=== PATIENT | female | born 1930 | race Hispanic/Latino ===

== ENCOUNTER 2016-08-16 13:06 | Emergency (ER) | payer MEDICARE ==
[2016-08-16 13:19] VITALS: BMI 36.3
--- NOTE | 2016-08-16 14:21 | ED PDOC ---
Arrival/HPI - General Chief Complaint: Eye Problem Time Seen by Provider: 08/16/16 13:34 Historian: Patient - History of Present Illness Narrative History of Present Illness (Text): 08/16/16 13:34 Neva Richey is an 85 year old female, whose past medical history includes hypertension, who presents to the emergency department complaining of dizziness with a sensation of "feeling underwater" for 3 days and a cough for 1 week. Patient also notes to have a lot of redness in left eye prior to coming to emergency department, which developed today but denies any visual changes. Patient experiences associated dizziness, mild unsteadiness, and mild decrease in hearing which she has had in the past. Patient denies any chest pain, shortness of breath, focal weakness, abdominal pain, nausea, vomiting, or any other complaint at this time. Patient endorses that she has been taking Meclizine outpatient for the past 3 months due to onset of dizziness noted. PMD: Dr. Patria Wright Time/Duration: 1 week, < week Symptom Onset: Gradual Symptom Course: Unchanged Severity Level: Mild Activities at Onset: Light Context: Home Past Medical History - Provider Review Nursing Documentation Reviewed: Yes - Infectious Disease Hx of Infectious Diseases: None - Reproductive Menopause: Yes - Cardiac Hx Cardiac Disorders: Yes Hx Hypertension: Yes - Pulmonary Hx Respiratory Disorders: No - Neurological Hx Neurological Disorder: Yes Hx Dizziness: Yes - HEENT Hx HEENT Disorder: No - Renal Hx Renal Disorder: No - Endocrine/Metabolic Hx Endocrine Disorders: No - Hematological/Oncological Hx Blood Disorders: No - Integumentary Hx Dermatological Disorder: No - Musculoskeletal/Rheumatological Hx Musculoskeletal Disorders: Yes Hx Arthritis: Yes (walks with cane) - Gastrointestinal Hx Gastrointestinal Disorders: No - Genitourinary/Gynecological Hx Genitourinary Disorders: No - Psychiatric Hx Psychophysiologic Disorder: Yes Hx Depression: Yes Hx Substance Use: No - Anesthesia Hx Anesthesia: No Family/Social History - Physician Review Nursing Documentation Reviewed: Yes Family/Social History: No Known Family HX Smoking Status: Never Smoked Hx Alcohol Use: No Hx Substance Use: No Allergies/Home Meds Allergies/Adverse Reactions: Allergies No Known Allergies Allergy (Verified 08/16/16 13:19) Home Medications: Home Meds Medication Instructions Recorded Confirmed Docusate [Colace] 100 mg PO DAILY 08/16/16 08/16/16 Losartan [Cozaar] 50 mg PO DAILY 08/16/16 08/16/16 Meclizine [Meclizine*] 25 mg PO DAILY 08/16/16 08/16/16 Meloxicam [Meloxicam] 7.5 mg PO BID 08/16/16 08/16/16 traMADol [Ultram] 25 mg PO DAILY 08/16/16 08/16/16 Review of Systems - Review of Systems Constitutional: absent: Fevers, Night Sweats Eyes: absent: Vision Changes ENT: Hearing Changes, Sinus Congestion Respiratory: absent: SOB Cardiovascular: absent: Chest Pain Gastrointestinal: absent: Abdominal Pain, Nausea, Vomiting Genitourinary Female: Other (treatment for recent UTI) Neurological: Dizziness. absent: Headache, Focal Weakness, Speech Changes, Facial Droop Physical Exam Vital Signs Temp Pulse Resp BP Pulse Ox 08/16/16 15:50 79 18 130/79 97 08/16/16 14:22 98.2 F 87 18 132/85 97 Temperature: Afebrile Blood Pressure: Normal Pulse: Regular Respiratory Rate: Normal Appearance: Positive for: Well-Appearing, Non-Toxic, Comfortable Pain Distress: None Mental Status: Positive for: Alert and Oriented X 3 - Systems Exam Head: Present: Atraumatic, Normocephalic Pupils: Present: PERRL Extroacular Muscles: Present: EOMI Conjunctiva: Present: Other (subconjuctival hemorrhage covering about 50% on the left side) Ears: Present: Normal, NORMAL TM, Normal Canal. No: Erythema Mouth: Present: Moist Mucous Membranes Pharnyx: Present: Normal. No: ERYTHEMA, EXUDATE Neck: Present: Normal Range of Motion Respiratory/Chest: Present: Clear to Auscultation, Good Air Exchange. No: Respiratory Distress, Accessory Muscle Use Cardiovascular: Present: Regular Rate and Rhythm, Murmurs, Normal S1, S2 Abdomen: Present: Normal Bowel Sounds. No: Tenderness, Distention, Peritoneal Signs Back: Present: Normal Inspection Upper Extremity: Present: Normal Inspection. No: Cyanosis, Edema Lower Extremity: Present: Normal Inspection. No: Edema Neurological: Present: GCS=15, CN II-XII Intact, Speech Normal, Motor Func Grossly Intact, Normal Sensory Function, Normal Cerebellar Funct, Norm Deep Tendon Reflexes, Memory Normal, Normal 2Pt Descrimination Skin: Present: Warm, Dry, Normal Color. No: Rashes Psychiatric: Present: Alert, Oriented x 3 Medical Decision Making ED Course and Treatment: 08/16/16 14:24 Impression: 85 year old female complaining of dizziness for 3 days, a cough for 1 week, and redness to the left eye today. Differential Diagnosis include but are not limited to: vertigo vs. less likely central etiology vs. less likely cardiac etiology vs. electrolyte abnormality Plan: -- EKG -- Head CT w/o contast -- Chest X-ray -- Urinalyiss -- Labs -- Reassess and disposition Prior Visits: Notes and results from previous visits were reviewed. Patient last seen in ED on 12/21/15 for right index finger laceration that day. Patient was discharged home. Progress Notes: 08/16/16 14:[address] w/o Contrast: Creator : Abdullahi Paulson MD FINDINGS: HEMORRHAGE:No intracranial hemorrhage. BRAIN:No mass effect or edema. Moderate diffuse age-appropriate atrophy. Moderate periventricular and deep white matter lucency consistent with microvascular white matter ischemic change. No evidence of acute infarct. VENTRICLES:Unremarkable. No hydrocephalus. CALVARIUM:Unremarkable. PARANASAL SINUSES:Unremarkable as visualized. No significant inflammatory changes. MASTOID AIR CELLS:Unremarkable as visualized. No inflammatory changes. OTHER FINDINGS:None. IMPRESSION: No intracranial mass, hemorrhage or evidence of acute infarct. Age related atrophy and chronic white matter ischemic change. 08/16/16 15:30 Chest X-ray: Creator : Kane Schafer MD FINDINGS: LUNGS:No active pulmonary disease. PLEURA:No significant pleural effusion identified. No pneumothorax apparent. CARDIOVASCULAR:Normal. OSSEOUS STRUCTURES:No significant abnormalities. VISUALIZED UPPER ABDOMEN:Normal. OTHER FINDINGS:None. IMPRESSION: No active disease. 08/16/16 16:48 Patient with noted history of dizziness for several months, on meclizine outpatient with, noted slightly worse of late. Neuro exam is normal as is brain CT with no acute findings. CXR is unremarkable as is ekg. Blood work is unremarkable; urine shows UTI, but already treated with macrobid. Will d/c on amoxicillin for UTI and sinusitis/bronchitis as well as antihistamine. Subconj hemorrhage will be treated supportively - ok for d/c. - Lab Interpretations Lab Results: 08/16/16 15:00 08/16/16 15:00 Lab Results 08/16/16 15:00: Sodium 139, Potassium 3.8, Chloride 103, Carbon Dioxide 30, Anion Gap 10, BUN 16, Creatinine 0.6, Est GFR ( Amer) > 60, Est GFR (Non- Af Amer) > 60, Random Glucose 108, Calcium 9.6, Magnesium 2.3 H, Total Bilirubin 0.4, AST 25, ALT 31, Alkaline Phosphatase 145 H, Lactate Dehydrogenase 449, Total Creatine Kinase 111, Troponin I < 0.01, Total Protein 7.1, Albumin 3.8, Globulin 3.3, Albumin/Globulin Ratio 1.2, Lipase 98 08/16/16 15:00: PT 12.7 H, INR 1.18 H, APTT 28.9 08/16/16 15:00: WBC 8.6, RBC 3.72, Hgb 11.3 L, Hct 33.4 L, MCV 89.8, MCH 30.4, MCHC 33.8, RDW 14.4, Plt Count 317, MPV 9.2, Gran % 58.5, Lymph % (Auto) 20.1 L , [place] % (Auto) 10.9 H, Eos % (Auto) 9.9 H, Baso % (Auto) 0.6, Gran # 5.02, Lymph # 1.7, [place] # 0.9 H, Eos # 0.9 H, Baso # 0.05 08/16/16 14:07: Urine Color Yellow, Urine Appearance Clear, Urine pH 6.0, Ur Specific [place] 1.015, Urine Protein Negative, Urine Glucose (UA) Negative, Urine Ketones Negative, Urine Blood Moderate H, Urine Nitrate Negative, Urine Bilirubin Negative, Urine Urobilinogen 0.2, Ur Leukocyte Esterase Trace H, Urine RBC Pending, Urine WBC Pending - RAD Interpretation Radiology Orders: 08/16/16 14:07 CHEST TWO VIEWS (PA/LAT) [RAD] Stat 08/16/16 14:08 Brain [HEAD W/O CONTRAST] [CT] Stat - EKG Interpretation EKG Interpretation (Text): 08/16/16 16:50 NSR @ 81; nad; normal intervals; poor baseline and patient will not sit still; likely no ST/T changes; no old ekg for comparison. Interpreted by ED Physician: Yes Type: 12 lead EKG Comparison: No previous EKG avail. - Scribe Statement The provider has reviewed the documentation as recorded by the Ashreibe Cierra Boswell Provider Scribe Attestation: All medical record entries made by the Scribe were at my direction and personally dictated by me. I have reviewed the chart and agree that the record accurately reflects my personal performance of the history, physical exam, medical decision making, and the department course for this patient. I have also personally directed, reviewed, and agree with the discharge instructions and disposition. Disposition/Present on Arrival - Present on Arrival Any Indicators Present on Arrival: No History of DVT/PE: No History of Uncontrolled Diabetes: No Urinary Catheter: No History of Decub. Ulcer: No History Surgical Site Infection Following: None - Disposition Have Diagnosis and Disposition been Completed?: Yes Diagnosis: Subconjunctival hemorrhage, Dizziness, Sinusitis Disposition: HOME/ ROUTINE Disposition Time: 16:55 Patient Plan: Discharge Condition: GOOD Discharge Instructions (ExitCare): Dizziness (ED), Subconjunctival Hemorrhage ( ED) Additional Instructions: Continue meclizine and take the medications as prescribed. Eat yogurt daily or use probiotic while on antibiotic. Return to the emergency department if any new concerning symptoms. Prescriptions: Amoxicillin [Amoxil 500 mg Cap] 1 cap PO TID #30 cap Loratadine [Claritin] 1 tab PO DAILY #20 tab Referrals: Patria Wright MD [Primary Care Provider] - Follow up with primary
[2016-08-16 14:22] VITALS: RESP 18; TEMP 98.2; O2SAT 97
--- NOTE | 2016-08-16 14:45 | CT ---
PROCEDURE: CT HEAD WITHOUT CONTRAST. HISTORY: dizzy COMPARISON: None available. TECHNIQUE: Axial computed tomography images were obtained through the head/brain without intravenous contrast. Radiation dose: Total exam DLP = 629.06 mGy-cm. This CT exam was performed using one or more of the following dose reduction techniques: Automated exposure control, adjustment of the mA and/or kV according to patient size, and/or use of iterative reconstruction technique. FINDINGS: HEMORRHAGE: No intracranial hemorrhage. BRAIN: No mass effect or edema. Moderate diffuse age-appropriate atrophy. Moderate periventricular and deep white matter lucency consistent with microvascular white matter ischemic change. No evidence of acute infarct. VENTRICLES: Unremarkable. No hydrocephalus. CALVARIUM: Unremarkable. PARANASAL SINUSES: Unremarkable as visualized. No significant inflammatory changes. MASTOID AIR CELLS: Unremarkable as visualized. No inflammatory changes. OTHER FINDINGS: None. IMPRESSION: No intracranial mass, hemorrhage or evidence of acute infarct. Age related atrophy and chronic white matter ischemic change.
[2016-08-16 15:16] LABS: ADD MANUAL DIFF? NO
--- NOTE | 2016-08-16 15:25 | RAD ---
HISTORY: dizzy and cough COMPARISON: No prior. TECHNIQUE: Chest PA and lateral FINDINGS: LUNGS: No active pulmonary disease. PLEURA: No significant pleural effusion identified. No pneumothorax apparent. CARDIOVASCULAR: Normal. OSSEOUS STRUCTURES: No significant abnormalities. VISUALIZED UPPER ABDOMEN: Normal. OTHER FINDINGS: None. IMPRESSION: No active disease.
[2016-08-16 15:29] LABS: ALB/GLOB RATIO 1.2 (1.1-1.8); ALKALINE PHOSPHATASE 145 U/L (38-133); ALT/SGPT 31 U/L (7-56); AST/SGOT 25 U/L (15-39); BILIRUBIN,TOTAL 0.4 mg/dL (0.2-1.3); BLOOD UREA NITROGEN 16 mg/dL (7-21); CALCIUM 9.6 mg/dL (8.4-10.5); CARBON DIOXIDE 30 mmol/L (21-33); CHLORIDE 103 mmol/L (98-107); GFR AFRICAN-AMERICAN > 60; GLUCOSE,RANDOM 108 mg/dL (70-110); INR 1.18 (0.93-1.08); MAGNESIUM 2.3 mg/dL (1.7-2.2); PARTIAL THROMBOPLASTIN TIME 28.9 Seconds (23.7-30.8); POTASSIUM 3.8 mmol/L (3.6-5.0); SODIUM 139 mmol/L (132-148); TOTAL PROTEIN 7.1 g/dL (5.8-8.3)
[2016-08-16 15:32] LABS: URINE BILIRUBIN NEGATIVE (NEGATIVE); URINE BLOOD MODERATE (NEGATIVE); URINE GLUCOSE (UA) NEGATIVE (NEGATIVE); URINE KETONE NEGATIVE (NEGATIVE); URINE LEUKOCYTE ESTERASE TRACE Leu/uL (NEGATIVE); URINE PROTEIN NEGATIVE mg/dL (<30 mg/dL); URINE UROBILINOGEN 0.2 E.U./dL (<1 E.U./dL)
[2016-08-16 15:37] LABS: URINE APPEARANCE CLEAR (CLEAR); URINE COLOR YELLOW (YELLOW)
[2016-08-16 15:50] LABS: TROPONIN I < 0.01 ng/mL
[2016-08-16 15:58] LABS: LIPASE 98 U/L (23-300)
[2016-08-16 16:27] LABS: HEMATOCRIT 33.4 % (36.0-48.0); MEAN CELL VOLUME 89.8 fL (80.0-105.0); MEAN CORPUSCULAR HEMOGLOBIN 30.4 pg (25.0-35.0); MEAN CORPUSCULAR HGB CONC 33.8 g/dl (31.0-37.0); WHITE BLOOD COUNT 8.6 10^3/ul (4.5-11.0)
[2016-08-16 16:29] LABS: BASO # 0.05 K/mm3 (0.0-2.0); BASO % 0.6 % (0.0-3.0); EOS # 0.9 (0.0-0.7); EOS % 9.9 % (1.5-5.0); GRAN # 5.02 (1.4-6.5); GRAN % 58.5 % (50.0-68.0); LYMPH # 1.7 (1.2-3.4); LYMPH % 20.1 % (22.0-35.0); MEAN PLATELET VOLUME 9.2 fl (7.0-11.0); MONO # 0.9 (0.1-0.6); MONO % 10.9 % (1.0-6.0); PLATELET COUNT 317 10^3/uL (120.0-450.0); RED CELL DISTRIBUTION WIDTH 14.4 % (11.5-14.5)
[2016-08-16 16:52] LABS: URINE RBC 15 - 20 /hpf (0-2)
[2016-08-16 16:53] LABS: URINE AMORPHOUS SEDIMENT FEW; URINE BACTERIA MANY (NEG)
[2016-08-16 17:14] VITALS: BP 131/80; PULSE 78
--- NOTE | 2016-08-16 21:34 | CARD ---
APPROVED REPORT EKG Measurement Heart [id number] <Conclusion> Normal sinus rhythm Nonspecific ST abnormality Abnormal ECG
== END 2016-08-16 17:00 | disposition home or self-care (01) ==
LOC: ED 13:06
DX: H11.32 Conjunctival hemorrhage, left eye (principal); R42 Dizziness and giddiness; J32.9 Chronic sinusitis, unspecified; I10 Essential (primary) hypertension

== ENCOUNTER 2018-08-08 14:43 | Inpatient (IN) | payer MEDICARE ==
[2018-08-08] MEDS ORDERED: [UNRECOGNIZED DRUG - OTHER] IV ONE (15:06)
[2018-08-08] MEDS ORDERED: Eptifibatide 20 mg/10mL Inj IV ONE (15:07)
[2018-08-08] MEDS ORDERED: Eptifibatide 20 mg/10mL Inj IVP ONE ×2 (15:10→15:58)
[2018-08-08] MEDS ORDERED: Eptifibatide 0.75 mg/ml 75 MG/100 ML BAG IV ONE (15:10)
[2018-08-08 15:13] LABS: BASO # 0.01 K/mm3 (0.0-2.0); BASO % 0.1 % (0.0-3.0); HEMOGLOBIN 13.4 g/dL (12.0-16.0); LYMPH # 2.1 (1.2-3.4); MEAN CELL VOLUME 89.1 fl (80.0-105.0); MEAN CORPUSCULAR HEMOGLOBIN 30.5 pg (25.0-35.0); MEAN CORPUSCULAR HGB CONC 34.2 g/dl (31.0-37.0); MEAN PLATELET VOLUME 9.5 fl (7.0-11.0); MONO # 2.8 (0.1-0.6); MONO % 14.6 % (1.0-6.0); RBC 4.4 10^6/uL (3.5-6.1); WHITE BLOOD COUNT 18.9 10^3/uL (4.5-11.0)
[2018-08-08] MEDS ORDERED: Lidocaine PF 2% (5 ml) Inj (For Cardiac Arrhy) ONE (15:13)
[2018-08-08] MEDS ORDERED: Verapamil 0 ML ONE (15:13)
[2018-08-08] MEDS ORDERED: Iodixanol 320 MG/ML 200 ML BOTTLE IV ONE (15:14)
[2018-08-08] MEDS ORDERED: Nitroglycerin 50mg in D5W 0 MG/0 ML BOTTLE IV ONE (15:14)
[2018-08-08] MEDS ORDERED: Iohexol 350mgl/ml 50 ML ONE (15:14)
[2018-08-08] MEDS ORDERED: Iodixanol 320 MG/ML 100 ML BOTTLE IV ONE (15:14)
[2018-08-08] MEDS ORDERED: Midazolam 2 MG/2 ML VIAL ONE (15:20)
[2018-08-08 15:23] LABS: ALB/GLOB RATIO 1.2 (1.1-1.8); ALBUMIN 4.2 g/dL (3.0-4.8); ALT/SGPT 94 U/L (7-56); AST/SGOT 371 U/L (14-36); BLOOD UREA NITROGEN 24 mg/dL (7-21); CALCIUM 10.2 mg/dL (8.4-10.5); GFR NON-AFRICAN AMERICAN > 60; INR 1.39; PARTIAL THROMBOPLASTIN TIME 28.5 Seconds (26.9-38.3); PROTHROMBIN TIME 15.4 SECONDS (9.4-12.5)
--- NOTE | 2018-08-08 15:27 | ED PDOC ---
Arrival/HPI - General Chief Complaint: GI Problem Time Seen by Provider: 08/08/18 14:44 Historian: Patient - Critical Care Critical Care Minutes: 30 minutes - History of Present Illness Narrative History of Present Illness (Text): 08/08/18 14:44 Neva Richey is an 87 year old female, with a past medical history of hypertension (no hx of diabetes or MT), who presents to the emergency department complaining of generalized weakness, nausea, and vomiting since 2 days. Pt's last episode of vomiting was yesterday. Per daughter, patient was unable to get out of bed and appreciates worsened fatigue which prompted visit to ED. Pt denies chest pain but informs of intermittent left sided neck pain. Patient denies fevers, chills, headache, dizziness, TMJ pain, shortness of breath, cough, abdominal pain, diarrhea, dysuria, hematuria. or any other complaints. PMD: Dr. Wright Time/Duration: < week (2 days) Symptom Onset: Sudden Activities at Onset: Light Context: Home Past Medical History - Provider Review Nursing Documentation Reviewed: Yes - Infectious Disease Hx of Infectious Diseases: None - Reproductive Menopause: Yes - Cardiac Hx Cardiac Disorders: Yes Hx Hypertension: Yes - Pulmonary Hx Respiratory Disorders: No - Neurological Hx Neurological Disorder: Yes Hx Dizziness: Yes - HEENT Hx HEENT Disorder: No - Renal Hx Renal Disorder: No - Endocrine/Metabolic Hx Endocrine Disorders: No - Hematological/Oncological Hx Blood Disorders: No - Integumentary Hx Dermatological Disorder: No - Musculoskeletal/Rheumatological Hx Musculoskeletal Disorders: Yes Hx Arthritis: Yes (walks with cane) - Gastrointestinal Hx Gastrointestinal Disorders: No - Genitourinary/Gynecological Hx Genitourinary Disorders: No - Psychiatric Hx Psychophysiologic Disorder: Yes Hx Depression: Yes Hx Substance Use: No - Anesthesia Hx Anesthesia: No Family/Social History - Physician Review Nursing Documentation Reviewed: Yes Family/Social History: No Known Family HX Smoking Status: Never Smoked Hx Alcohol Use: No Hx Substance Use: No Allergies/Home Meds Allergies/Adverse Reactions: Allergies No Known Allergies Allergy (Verified 08/16/16 13:19) Home Medications: Home Meds Medication Instructions Recorded Confirmed Docusate [Colace] 100 mg PO DAILY 08/16/16 08/16/16 Losartan [Cozaar] 50 mg PO DAILY 08/16/16 08/16/16 Meclizine [Meclizine*] 25 mg PO DAILY 08/16/16 08/16/16 Meloxicam 7.5 mg PO BID 08/16/16 08/16/16 traMADol [Ultram] 25 mg PO DAILY 08/16/16 08/16/16 Review of Systems - Review of Systems Constitutional: Fatigue (generalized fatigue). absent: Fevers Eyes: absent: Vision Changes ENT: absent: Hearing Changes, TMJ Pain Respiratory: absent: SOB, Cough Cardiovascular: Chest Pain (L sided "neck/upper chest" pain) Gastrointestinal: Diarrhea, Nausea, Vomiting. absent: Abdominal Pain Genitourinary Female: absent: Dysuria, Hematuria Neurological: absent: Headache, Dizziness Physical Exam Vital Signs Reviewed: Yes Vital Signs Temp Pulse Resp BP Pulse Ox 08/08/18 15:10 104 H 20 124/70 98 08/08/18 15:01 98.2 F 112 H 18 113/74 98 08/08/18 14:58 108 H 18 122/71 100 Blood Pressure: Normal Pulse: Tachycardic Respiratory Rate: Normal Appearance: Positive for: Other (Anxious) Pain Distress: None Mental Status: Positive for: Alert and Oriented X 3 - Systems Exam Head: Present: Atraumatic, Normocephalic Pupils: Present: PERRL Extroacular Muscles: Present: EOMI Conjunctiva: Present: Normal Mouth: Present: Moist Mucous Membranes Neck: Present: Normal Range of Motion Respiratory/Chest: Present: Clear to Auscultation, Good Air Exchange. No: Respiratory Distress, Accessory Muscle Use, Wheezes, Rales, Rhonchi Cardiovascular: Present: Normal S1, S2, Tachycardic. No: Murmurs Abdomen: No: Tenderness, Distention, Peritoneal Signs, Rebound, Guarding Back: Present: Normal Inspection Upper Extremity: Present: Normal Inspection, NORMAL PULSES (distal pulses intact). No: Cyanosis, Edema Lower Extremity: Present: Normal Inspection. No: Edema (no pitting edema bilaterally) Neurological: Present: GCS=15, CN II-XII Intact, Speech Normal Skin: Present: Warm, Dry, Normal Color. No: Rashes Psychiatric: Present: Alert, Oriented x 3, Normal Insight, Normal Concentration Medical Decision Making ED Course and Treatment: 08/08/18 14:44 Impression: Patient is an 87 year old female, with a past medical history of hypertension, who presents to the emergency department complaining of generalized weakness, nausea, and vomiting since 2 days. Pt appreciates worsened fatigue today which prompted visit to ED. Plan: -- Labs -- EKG -- Chest X-Ray -- Aspirin -- Integrilin -- Plavix -- Urine Culture -- Urinalysis -- Reassess and disposition Prior Visits: Notes and results from previous visits were reviewed. Progress Notes: 08/08/18 14:56 Reviewed EKG, shows: ST elevations in leads II, III, aVF w/ reciprocal changes. Code heart immediately called. 08/08/18 14:58 Dr. Kirby is aware and agrees to accept patient for Dr. Wright. Consult per Dr. Hunt for code heart; requests aspirin and integrillin bolus & drip. ICU resident at bedside and accepts patient to ICU after laborer tree tapping - RAD Interpretation Radiology Orders: 08/08/18 15:01 CHEST PORTABLE [RAD] Stat - EKG Interpretation Interpreted by ED Physician: Yes Type: 12 lead EKG - Medication Orders Current Medication Orders: Eptifibatide (Integrilin) 75 mg in 100 mls @ 8.818 mls/hr IV .[id number] ROSY; Protocol Discontinued Medications Aspirin (Aspirin) 325 mg PO STAT STA Stop: 08/08/18 15:02 Eptifibatide (Integrilin Bolus) 11.4 mg 0.18 mg/kg (11.4 mg) IV ONCE ONE Stop: 08/08/18 15:08 - Scribe Statement The provider has reviewed the documentation as recorded by the Scribmicki Garcia All medical record entries made by the Asheribmicki were at my direction and personally dictated by me. I have reviewed the chart and agree that the record accurately reflects my personal performance of the history, physical exam, medical decision making, and the department course for this patient. I have also personally directed, reviewed, and agree with the discharge instructions and disposition. Disposition/Present on Arrival - Present on Arrival Any Indicators Present on Arrival: No History of DVT/PE: No History of Uncontrolled Diabetes: No Urinary Catheter: No History of Decub. Ulcer: No History Surgical Site Infection Following: None - Disposition Have Diagnosis and Disposition been Completed?: Yes Diagnosis: STEMI (ST elevation myocardial infarction) Disposition: HOSPITALIZED Disposition Time: 15:01 Patient Plan: ICU Patient Problems: Current Active Problems Problem Status Onset STEMI (ST elevation myocardial infarction) Acute Condition: CRITICAL
--- NOTE | 2018-08-08 15:32 | RAD ---
Date of service: 08/08/2018 HISTORY: chest pain COMPARISON: 08/16/2016 TECHNIQUE: 1 view obtained. FINDINGS: LUNGS: No active pulmonary disease. PLEURA: No significant pleural effusion identified, no pneumothorax apparent. CARDIOVASCULAR: Aortic calcification Normal cardiac size. No pulmonary vascular congestion. OSSEOUS STRUCTURES: No significant abnormalities. VISUALIZED UPPER ABDOMEN: Normal. OTHER FINDINGS: None. IMPRESSION: No active disease.
[2018-08-08] MEDS: Eptifibatide 0.75 mg/ml 75 MG/100 ML BAG IV SCH ×2 (15:33→23:42)
--- NOTE | 2018-08-08 15:39 | CP.PCM.PCO ---
Summary - Summary of Event Summary of Event: House Resident [facility] Note Harshil An DO, IM PGY-3 [facility] called in ED at 1458, responded immediately. As per ED attending, this is an 87yo F with PMH of HTN, no known hx of cardiac disease, brought in by family member after worsening malaise and weakness x3 days. As per nimarianela Tipton (who is POA and takes care of pt), pt experienced emesis and diarrhea with malaise 2 days prior, worsening malaise and more emesis yesterday, and felt weak to the point of being unable to do anything today, so nimarianela brought pt to ED. Pt not complaining of chest pain, but reports upper chest/neck discomfort. EKG obtained in ED was acutely concerning for possible STEMI, given ST elevations in II, III, and aVF, with milder ST elevations in V5-6 (possibly V4), and reciprocal depressions in I, aVL, and V2-3. Cardiology early intervention school psychologist for [facility] reviewed EKG, confirmed STEMI, [facility] called. Prior to transport to receiver/laborer, patient given ASA 325mg, Interillin bolus, and was started on Integrillin drip. Transported to receiver/laborer without issue, Jigsaw Operator (Dr. Jade) already on site and accepted patient into lab immediately. After arrival, at Cardiology's request, 600mg Plavix also given. Patient to go to ICU post-procedure for continuation of integrillin drip and close monitoring post-cath.
[2018-08-08] MEDS ORDERED: DOPamine 400mg/250ml D5W 400 MG/250 ML BAG IV ONE (15:40)
[2018-08-08 15:49] LABS: CK MB% 2.9 % (2.5-3.0); CK-MB 39.3 ng/mL (0.0-3.6)
[2018-08-08] MEDS ORDERED: Phenylephrine 10 mg/ml Inj ONE (15:50)
[2018-08-08] MEDS ORDERED: Morphine 2 mg/ml ISec ONE (15:52)
[2018-08-08] MEDS ORDERED: Iodixanol 320 mg/ml 150 ml Bottle IV ONE (16:01)
--- NOTE | 2018-08-08 16:48 | CP.PCM.CON ---
<Michel Jewell Andi - Last Filed: 08/08/18 17:08> History of Present Illness - History of Present Illness History of Present Illness: PGY-2 ICU consult note for Dr Last This is an 87yo F with PMH of HTN, depression, arthritis, no known hx of cardiac disease, brought in by family member after worsening malaise and weakness x3 days. As per niece Danuta (who is POA and takes care of pt), pt experienced emesis and diarrhea with malaise 2 days prior, worsening malaise and more emesis yesterday, and felt weak to the point of being unable to do anything today, so niece brought pt to ED. Pt not complaining of chest pain, but reports upper chest/neck discomfort. EKG showed ST elevations in II, III, and aVF with reciprocal depressions in I, aVL and V2-V3. Initial troponin was 47. She was giv en aspirin 325mg po qd, integrillin 5mg ivp and started on integrillin drip. Dr Jade performed emergent cardiac cath and placed 2 KRISTINA in RCA (distal and proximal). Patient needed a push of epi as pressure had dropped during cath. She will be accepted to the ICU for further monitoring and continuation of integrillin, dopamine and dobutamine drips. PMHx: HTN, depression, arthritis requiring a cane for ambulation PSHx: none Allergies: NKA Home Meds: BP medicine and medicine for dizziness - niece could not recall name FamHx: both parents young (~45 yo) of heart attacks, sister with DM2 SocialHx: never smoked, no alcohol, lives alone, walks with cane PMD: Dr Wright Review of Systems - Review of Systems All systems: reviewed and no additional remarkable complaints except (as stated in HPI) Past Patient History - Infectious Disease Hx of Infectious Diseases: None - Past Social History Smoking Status: Never Smoked - CARDIAC Hx Cardiac Disorders: Yes Hx Hypertension: Yes - PULMONARY Hx Respiratory Disorders: No - NEUROLOGICAL Hx Neurological Disorder: Yes Hx Dizziness: Yes - HEENT Hx HEENT Problems: No - RENAL Hx Chronic Kidney Disease: No - ENDOCRINE/METABOLIC Hx Endocrine Disorders: No - HEMATOLOGICAL/ONCOLOGICAL Hx Blood Disorders: No - INTEGUMENTARY Hx Dermatological Problems: No - MUSCULOSKELETAL/RHEUMATOLOGICAL Hx Musculoskeletal Disorders: Yes Hx Arthritis: Yes (walks with cane) - GASTROINTESTINAL Hx Gastrointestinal Disorders: No - GENITOURINARY/GYNECOLOGICAL Hx Genitourinary Disorders: No - PSYCHIATRIC Hx Psychophysiologic Disorder: Yes Hx Depression: Yes Hx Substance Use: No - SURGICAL HISTORY Hx Surgeries: No - ANESTHESIA Hx Anesthesia: No Meds Allergies/Adverse Reactions: Allergies Allergy/AdvReac Type Severity Reaction Status Date / Time No Known Allergies Allergy Verified 08/16/16 13:19 - Medications Medications: Current Medications Eptifibatide (Integrilin) 75 mg in 100 mls @ 8.818 mls/hr IV .[id number] [facility]; Protocol Last Admin: 08/08/18 15:33 Dose: 8.818 mls/hr Physical Exam - Constitutional Appears: Well, Non-toxic, No Acute Distress - Head Exam Head Exam: ATRAUMATIC, NORMAL INSPECTION - Eye Exam Eye Exam: EOMI, Normal appearance, PERRL. absent: Scleral icterus - ENT Exam ENT Exam: Mucous Membranes Moist - Neck Exam Neck exam: Positive for: Normal Inspection - Respiratory Exam Respiratory Exam: Clear to Auscultation Bilateral, Rales, NORMAL BREATHING PATTERN. absent: Rhonchi, Wheezes - Cardiovascular Exam Cardiovascular Exam: REGULAR RHYTHM, +S1, +S2. absent: JVD - GI/Abdominal Exam GI & Abdominal Exam: Normal Bowel Sounds, Soft. absent: Distended, Firm, Gua rding, Tenderness - Extremities Exam Extremities exam: Positive for: normal inspection Additional comments: left cath insertion site c/d/i - Neurological Exam Neurological exam: Alert, Oriented x3 - Skin Skin Exam: Dry, Intact, Normal Color, Warm Results - Vital Signs Recent Vital Signs: Last Vital Signs Temp 98.2 F 08/08/18 15:01 Pulse 104 H 08/08/18 15:10 Resp 20 08/08/18 15:10 BP 124/70 08/08/18 15:10 Pulse Ox 98 08/08/18 15:10 - Labs Result Diagrams: 08/08/18 15:00 08/08/18 15:00 Labs: Laboratory Results - last 24 hr 08/08/18 08/08/18 08/08/18 15:00 15:00 15:00 WBC 18.9 H RBC 4.40 Hgb 13.4 Hct 39.2 MCV 89.1 MCH 30.5 MCHC 34.2 RDW 14.0 Plt Count 212 MPV 9.5 Neut % (Auto) 74.3 H Lymph % (Auto) 11.0 L Villalba % (Auto) 14.6 H Eos % (Auto) 0.0 L Baso % (Auto) 0.1 Lymph # (Auto) 2.1 Villalba # (Auto) 2.8 H Eos # (Auto) 0.0 Baso # (Auto) 0.01 Absolute Neuts (auto) 14.01 H PT 15.4 H INR 1.39 APTT 28.5 Sodium 131 L Potassium 4.1 Chloride 94 L Carbon Dioxide 28 Anion Gap 13 BUN 24 H Creatinine 0.7 Est GFR ( Amer) > 60 Est GFR (Non-Af Amer) > 60 Random Glucose 122 H Calcium 10.2 Total Bilirubin 0.9 AST 371 H ALT 94 H Alkaline Phosphatase 101 Lactate Dehydrogenase 3867 H Total Creatine Kinase 1368 H CK-MB (CK-2) 39.3 H CK-MB (CK-2) % 2.9 Troponin I 47.60 H* D Total Protein 7.8 Albumin 4.2 Globulin 3.5 Albumin/Globulin Ratio 1.2 Assessment & Plan - Assessment and Plan (Free Text) Plan: Mrs Richey is a 87yo F with PMH of HTN, depression, arthritis, no known hx of cardiac disease, brought in by family member after worsening malaise and weakness x3 days found to have an STEMI on presentation and underwent emergent cardiac cath with placement of 2 KRISTINA in RCA: Cardiovascular #STEMI -initial ekg showed ST elevations in II, III, aVL with reciprocal changes in lateral leads with initial troponin 47 -in ED given aspirin 325mg po qd, integrillin bolus, integrillin drip and later plavix 600mg prior to cardiac cath -continue integrillin drip, dopamine, and dobutamine for inotropic support -coreg 3.125 po bid, lipitor 80mg po din, ramipril 1.25mg po qd -gentle hydration NS 50 cc/hr -f/u echo, repeat ekg -f/u lipid panel, hga1c, tsh, serial troponins -will possibly need another cath in a few days Pulmonary -saturating well on 2L NC -monitor saturation, she is at risk for flash pulmonary edema, will monitor closely Neuro -no active issues -ambien 5mg po hs prn for insomnia GI #Tranaminitis -monitor LFTs -zofram 4mg ivp prn for n/v -colace 100mg po bid ID #Leukocytosis -likely 2/2 stress response from IA -f/u urine cx PPx: GI ppx not indicated, AC with integrillin drip, heart healthy diet Seen and discussed with Dr Last <Lucho Last - Last Filed: 08/08/18 18:10> Meds - Medications Medications: Current Medications Aspirin (Ecotrin) 81 mg PO DAILY [facility] Atorvastatin Calcium (Lipitor) 80 mg PO DIN [facility] Carvedilol (Coreg) 3.125 mg PO BID [facility] Clopidogrel Bisulfate (Plavix) 75 mg PO DAILY [facility] Docusate Sodium (Colace) 100 mg PO BID [facility] Eptifibatide (Integrilin) 75 mg in 100 mls @ 8.818 mls/hr IV .[id number] [facility]; Protocol Stop: 08/09/18 11:15 Last Admin: 08/08/18 15:33 Dose: 8.818 mls/hr Dobutamine HCl/Dextrose (Dobutamine/Dextrose 5% 500mg/250ml) 500 mg in 250 mls @ 3.307 mls/hr IV .Q24H PRN; Protocol PRN Reason: TITRATE PER PROTOCOL Dopamine HCl/Dextrose (Dopamine 400mg/250ml D5w) 400 mg in 250 mls @ 4.133 mls/hr IV .Q24H PRN; Protocol PRN Reason: TITRATE PER MD ORDER Sodium Chloride (Sodium Chloride 0.9%) 1,000 mls @ 50 mls/hr IV .Q20H [facility] Stop: 08/09/18 13:00 Ondansetron HCl (Zofran Inj) 4 mg IV Q6H PRN PRN Reason: Nausea/Vomiting Ramipril (Altace) 1.25 mg PO DAILY [facility] Zolpidem Tartrate (Ambien) 5 mg PO HS PRN PRN Reason: Insomnia Results - Vital Signs Recent Vital Signs: Last Vital Signs Temp 98.2 F 08/08/18 15:01 Pulse 104 H 08/08/18 15:10 Resp 20 08/08/18 15:10 BP 124/70 08/08/18 15:10 Pulse Ox 98 08/08/18 15:10 - Labs Result Diagrams: 08/08/18 15:00 08/08/18 15:00 Labs: Laboratory Results - last 24 hr 08/08/18 08/08/18 08/08/18 15:00 15:00 15:00 WBC 18.9 H RBC 4.40 Hgb 13.4 Hct 39.2 MCV 89.1 MCH 30.5 MCHC 34.2 RDW 14.0 Plt Count 212 MPV 9.5 Neut % (Auto) 74.3 H Lymph % (Auto) 11.0 L Villalba % (Auto) 14.6 H Eos % (Auto) 0.0 L Baso % (Auto) 0.1 Lymph # (Auto) 2.1 Villalba # (Auto) 2.8 H Eos # (Auto) 0.0 Baso # (Auto) 0.01 Absolute Neuts (auto) 14.01 H PT 15.4 H INR 1.39 APTT 28.5 Sodium 131 L Potassium 4.1 Chloride 94 L Carbon Dioxide 28 Anion Gap 13 BUN 24 H Creatinine 0.7 Est GFR ( Amer) > 60 Est GFR (Non-Af Amer) > 60 Random Glucose 122 H Calcium 10.2 Total Bilirubin 0.9 AST 371 H ALT 94 H Alkaline Phosphatase 101 Lactate Dehydrogenase 3867 H Total Creatine Kinase 1368 H CK-MB (CK-2) 39.3 H CK-MB (CK-2) % 2.9 Troponin I 47.60 H* D Total Protein 7.8 Albumin 4.2 Globulin 3.5 Albumin/Globulin Ratio 1.2 Assessment & Plan - Assessment and Plan (Free Text) Plan: I saw and examined the patient on rounds with the resident, agree with note with following additions/exceptions: Patient is 87yo female with PMH of HTN, depression, arthritis, no known hx of cardiac disease, brought in by family member after worsening malaise and weakness x3 days found to have an STEMI s/p cardiac cath with placement of 2 KRISTINA in RCA Currently afebrile, HD stable, comfortable in NAD, doing well Cont with ASA, Plavix, Statin Hold BB Inotropic support ECHO Lipid panel, TSH, HgbA1C GI ppx DVT ppx Monitor in MICU
[2018-08-08] MEDS ORDERED: DOBUTamine 500mg/250ml D5W 500 MG/250 ML BAG IV PRN (16:49)
[2018-08-08] MEDS ORDERED: DOPamine 400mg/250ml D5W 400 MG/250 ML BAG IV PRN (16:49)
[2018-08-08] MEDS ORDERED: Sodium Chloride 0.9% 1,000 ML IV SCH (17:00)
--- NOTE | 2018-08-08 17:31 | CPOSTOP ---
DATE: 08/08/2018 DICTATING PHYSICIAN: Dr. Leonardo Jade. FIELD MARKETING LEAD: Gabriela Pemberton. TYPE OF ANESTHESIA: Moderate conscious sedation. Total 0.5 mg of Versed and 25mcg of fentanyl, 2 mg morphine given periodically, started at 25 of fentanyl. PRE-PROCEDURE DIAGNOSIS: Acute code ST-elevation myocardial infarction. PROCEDURE PERFORMED: Left heart catheterization and stenting of proximal to mid right coronary artery and distal right coronary artery. FINDINGS: RCA totally occluded. LAD had 95% stenosis with decreased LV function. FINAL DIAGNOSES: Acute code ST-elevation myocardial infarction secondary to right coronary artery infarct related artery, 100% occluded. POST PROCEDURE CONDITION: The patient's condition is fairly stable. VASCULAR ACCESS SITE: Right femoral artery. CLOSURE DEVICE: Mynx. TOTAL RADIATION DOSE: 24685 mGy unit. CUMULATIVE DOSE: 3290 mGy unit. FLUORO TIME: 20.6. Total contrast used.220 cc Leonardo Jade MD MTDD
[2018-08-08] MEDS ORDERED: Amiodarone 150 mg/D5W 100 ml 150 MG/100 ML BAG IVPB ONE (17:48)
--- NOTE | 2018-08-08 18:28 | CARD ---
APPROVED REPORT Date of service: 08/08/2018 EKG Measurement Heart [id number] <Conclusion> Sinus tachycardia Low voltage QRS Inferior infarct, possibly acute Lateral injury pattern Possible posterior wall ME acute ACUTE ME Consider right ventricular involvement in acute inferior infarct CCR Serial tracings recommended Abnormal ECG
[2018-08-08 20:39] LABS: BASO # 0.01 K/mm3 (0.0-2.0); BASO % 0.1 % (0.0-3.0); HEMOGLOBIN 11.5 g/dL (12.0-16.0); LYMPH # 1.5 (1.2-3.4); LYMPH % 8.5 % (22.0-35.0); MEAN CORPUSCULAR HGB CONC 34.1 g/dl (31.0-37.0); MEAN PLATELET VOLUME 9.7 fl (7.0-11.0); MONO # 2.3 (0.1-0.6); MONO % 12.6 % (1.0-6.0); RBC 3.83 10^6/uL (3.5-6.1); RED CELL DISTRIBUTION WIDTH 14.1 % (11.5-14.5); WHITE BLOOD COUNT 18.1 10^3/uL (4.5-11.0)
[2018-08-08 20:51] LABS: BLOOD UREA NITROGEN 21 mg/dL (7-21); CALCIUM 8.9 mg/dL (8.4-10.5); GFR NON-AFRICAN AMERICAN > 60
[2018-08-08 21:15] LABS: CK MB% 3.4 % (2.5-3.0); CK-MB 38.8 ng/mL (0.0-3.6)
[2018-08-08] MEDS ORDERED: Pneumococcal 23-Valent Vaccine IM ONE (22:27)
[2018-08-08 22:28] VITALS: BMI 22.2
--- NOTE | 2018-08-09 02:51 | HP ---
DATE OF EXAM: 08/08/2018 HISTORY OF PRESENT ILLNESS: The patient is an 87-year-old female who was brought in by niece because of her complaining of not feeling well for the last two days. She had an episode of nausea and vomiting, having difficulty getting out of bed and walking, this is not her usual, so because of her increasing malaise and fatigue, niece called the ambulance and she was brought to the emergency room. During workup, she was found to have ST-elevation CA in II, III, and aVF, so code heart was called. The patient was taken to cath lab tech and had emergent angioplasty done. The patient denies any fever or chills. Denies history of nausea or vomiting. Just complained of some jaw pain and upper, middle, and lower back pain. PAST MEDICAL HISTORY: Significant for: 1. Hypertension. 2. History of generalized osteoarthritis. ALLERGIES: SHE IS NOT ALLERGIC TO ANY MEDICATION. MEDICATIONS AT HOME: She is on blood pressure medication, and she takes meclizine as needed. She is on Mobic 7.5 twice a day, tramadol 25 three times a day, meclizine 25 t.i.d. p.r.n., Cozaar 50 mg daily and one tablet daily. FAMILY HISTORY: Both parents of heart disease at early age and sister has diabetes. SOCIAL HISTORY: Denies smoking, drinking, or alcohol use. PHYSICAL EXAMINATION GENERAL: She is awake and alert, able to communicate. VITAL SIGNS: She is afebrile, pulse 90, respirations 26, and blood pressure 87/64. LUNGS: Bilateral fair airflow. No rhonchi or crackle. HEART: S1 and S2 audible. ABDOMEN: Soft, nontender. No rebound, no guarding. NEUROLOGICAL: The patient is awake and alert, able to communicate. LABORATORY DATA: WBC upon arrival 18.9, and followup is 18.1, hemoglobin 11.5, hematocrit 33.7, and platelet 182. PT of 15.4 and INR of 1.39. Chemistries; sodium 131, potassium 3.8, chloride 98, CO2 of 24, BUN of 21, creatinine and blood sugar of 129. LDH of 3150, CPK of 1150 and MB of 38.8. Initial troponin was 47 and followup is 62.30. EKG showed ST elevation in II, III, and aVF. ASSESSMENT: 1. Acute myocardial infarction status post anterior wall myocardial infarction. 2. Status post code heart and right coronary artery angioplasty. 3. Hypertension. 4. Hyperlipidemia. 5. History of depression. PLAN: The patient is being admitted in ICU. She is on ramipril 1.25 daily. She is on aspirin and carvedilol. She is on dobutamine since her blood pressure was running low. She is on aspirin 81 daily. She is on Integrilin. She is on atorvastatin. She is on Plavix. She is on IV fluid. Follow up her electrolytes and CBC in a.m. She will be monitored closely and hemodynamically in ICU. Corry Kirby MD
[2018-08-09] MEDS: Eptifibatide 0.75 mg/ml 75 MG/100 ML BAG IV SCH (05:30)
[2018-08-09 06:39] LABS: BASO # 0.01 K/mm3 (0.0-2.0); BASO % 0.1 % (0.0-3.0); EOS % 0.1 % (1.5-5.0); HEMOGLOBIN 11.2 g/dL (12.0-16.0); LYMPH # 1.6 (1.2-3.4); LYMPH % 10.9 % (22.0-35.0); MEAN CELL VOLUME 90.6 fl (80.0-105.0); MEAN CORPUSCULAR HGB CONC 33.1 g/dl (31.0-37.0); MEAN PLATELET VOLUME 10.2 fl (7.0-11.0); MONO # 1.9 (0.1-0.6); MONO % 13.5 % (1.0-6.0); RBC 3.73 10^6/uL (3.5-6.1); RED CELL DISTRIBUTION WIDTH 14.2 % (11.5-14.5); WHITE BLOOD COUNT 14.4 10^3/uL (4.5-11.0)
[2018-08-09 07:01] LABS: ALB/GLOB RATIO 1.2 (1.1-1.8); ALBUMIN 3.4 g/dL (3.0-4.8); ALT/SGPT 82 U/L (7-56); AST/SGOT 196 U/L (14-36); BLOOD UREA NITROGEN 22 mg/dL (7-21); CALCIUM 8.9 mg/dL (8.4-10.5); GFR NON-AFRICAN AMERICAN > 60; HDL CHOLESTEROL 53 mg/dL (29-60)
[2018-08-09 07:03] LABS: LDL CHOLESTEROL 103 mg/dL (0-129)
[2018-08-09 07:12] LABS: CK MB% 3.4 % (2.5-3.0); CK-MB 31.8 ng/mL (0.0-3.6)
[2018-08-09] MEDS ORDERED: Potassium Chloride 20 mEq ER Tab PO STA (08:00)
--- NOTE | 2018-08-09 08:45 | CON ---
DATE: 08/08/2018 CONSULT SERVICE: Cardiology. REASON FOR CONSULTATION: Acute Code ST-elevation myocardial infarction. BRIEF CLINICAL HISTORY: This is an 87-year-old female with a past medical history significant for hypertension, hypothyroidism, and benign positional vertigo, who came to emergency room after being brought by the niece because of having nausea and vomiting and lethargic, feeling really weak. She saw the patient at 9 a.m., but the patient was feeling good so went to the home and came back again when the niece visited at around 2 p.m., the patient was very sick and so brought here to the emergency room. When the patient came to emergency room, found to be in ST elevation and admitted. Denies any chest pain, but feeling very weak and lethargic. PAST MEDICAL HISTORY: Significant for hypertension, hypothyroidism, and vertigo as well as arthritis. PAST SURGICAL HISTORY: Nothing significant. CURRENT MEDICATIONS: The patient is taking amlodipine 10 mg daily, levothyroxine 25 mcg, meloxicam 7.5 mg daily, meclizine 25 mg daily, and amlodipine 10 mg daily. REVIEW OF SYSTEMS: As per HPI. PHYSICAL EXAMINATION GENERAL: Height of the patient 5 feet 2 inches, weight of the patient 121 pounds, and body mass index 22.2 kg/m2. VITAL SIGNS: Temperature afebrile, heart rate 104, and blood pressure 124/78. HEENT: PERRLA. Extraocular muscles intact. NECK: Supple. No carotid bruits. No thyromegaly. CHEST: Clear to auscultation. HEART: S1 and S2, regular. ABDOMEN: Soft. EXTREMITIES: Clubbing and cyanosis negative. LABORATORY DATA: Blood work up as follows; WBC 18.9, hemoglobin 13.9, hematocrit 39.2, and platelet count 212. Chemistry pending. Creatinine found to be 0.7, BUN 24. The rest of the labs are pending. EKG shows normal sinus, ST elevation in inferior wall with reciprocal ST depression in the anterior lead. IMPRESSION: An 87-year-old female with a past medical history of hypertension, hypothyroidism, admitted with acute ST elevation myocardial infarction of probably 24 hours or longer, but the risks, benefits and alternatives were discussed with the patient, the patient agreed, and we will proceed for cardiac catheterization with possible angioplasty. Duration of the ST elevation is not sure, possibly more than 6 to 12 hours. Further recommendations will depend upon the hospital course. We will follow with you. Thank your Dr. Monzon for providing us the opportunity in taking care of the patient, Faith Styles. Leonardo Jade MD
--- NOTE | 2018-08-09 09:55 | CARD ---
APPROVED REPORT Date of service: 08/08/2018 EKG Measurement Heart [id number] <Conclusion> Sinus tachycardia Inferior infarct, suggesting acute injury ACUTE FL Consider right ventricular involvement in acute inferior infarct Abnormal ECG
--- NOTE | 2018-08-09 10:18 | CARD ---
APPROVED REPORT Date of service: 08/08/2018 Procedure(s) performed: Left Heart Catheterization PTCA with Stenting of Proximal to Mid RCA with KRISTINA PTCA with Stenting of Distal RCA with KRISTINA PTCA with Balloon Angioplasty of RV marginal Br HISTORY The patient is a 87 year-old female with a history of : hypertension , Hx of HTN, vertigo, hypothyroidism admitted with STEMI. INDICATION The indication(s) include : STEMI . CASE TECHNIQUE The patient was brought emergently to the Cardiac Catheterization Laboratory in a fasting state and was prepped and draped in a sterile manner. The right femoral groin was infiltrated with 2% Lidocaine subcutaneous anesthesia. A 6 Fr x 11 cm Larissa sheath was inserted into the right femoral artery without difficulty. Coronary angiography was performed using coronary diagnostic catheters. The left coronary system was accessed and visualized with a Diagnostic , 6F JL4 CATH DXT 100 CM catheter. The right coronary system was accessed and visualized with a Diagnostic ,6 Fr JR 3.5 catheter. The left ventricle was accessed and visualized with a 6F PIGTAIL 145 CATH DXT 110 CM catheter. Left ventricular/Aortic Valve gradient assessed on pullback. Left ventriculogram was performed in SLADE projection. Closure device was deployed with a 6 Fr / 7 Fr MynxGrip without any complications. The patient tolerated the procedure well and there were no complications associated with the procedure. Vessel Analysis The patient's coronary anatomy is right dominant. The left main coronary artery is a medium size vessel with diffuse calcification noted throughout this vessel and without significant stenosis. There is a 20% stenosis in the distal segment. The left main bifurcates to the left anterior descending and circumflex. The left anterior descending artery is a medium size vessel with diffuse calcification noted throughout this vessel and with significant stenosis. There is a 95% stenosis in the mid segment. The first diagonal branch is a small size vessel with diffuse calcification noted throughout this vessel and without significant stenosis. The second diagonal branch is a medium size vessel with diffuse calcification noted throughout this vessel and without significant stenosis. The circumflex artery is a medium size vessel with diffuse calcification noted throughout this vessel and without significant stenosis. The first obtuse marginal branch is a small size vessel with diffuse calcification noted throughout this vessel and without significant stenosis. The right coronary artery is a large size vessel with diffuse calcification noted throughout this vessel and with significant stenosis. There is a 100% stenosis in the proximal segment. Distal RCA has 90% The right posterior descending artery is a medium size vessel with diffuse calcification noted throughout this vessel and without significant stenosis. The right posterolateral branch is a medium size vessel with diffuse calcification noted throughout this vessel and without significant stenosis. Left Ventricle The left ventricle is enlarged in size with moderately decreased contractility. Ischemic cardiomyopathy. The left ventricular ejection fraction is estimated to be 25%. The left ventricular end diastolic pressure is 25 mmHg. There was no gradient across the aortic valve upon pullback. PCI Technique Lesion Anticoagulation was achieved with Heparin and integrellin bolus and Infusion. Percutaneous coronary intervention was performed on the proximal right coronary artery. The lesion stenosis prior to intervention was 100% with ANITA 0 flow. A 6 Fr JR 3.5 Guide Catheter was used to engage the ostium. A Luge 182 Interventional Guidewire was used to cross the lesion. BALLOON DILATION A Balloon catheter 2.5 x 10 mm Sprinter RX was inserted and inflated up to 8.00atm for 10seconds. STENT DEPLOYMENT A drug-eluting stent STENT RESOLUTE WILY 2.75 X26 was inserted and inflated up to 12.00atm for 7seconds. POST STENT DEPLOYMENT BALLOON DILATION A Balloon catheter 3.0 x 12 mm Trek RX NC was inserted and inflated up to 12.00atm for 7seconds. Final angiography reveals 0 % stenosis with ANITA 3 flow. PCI Technique Lesion 2 Percutaneous Coronary Intervention was performed on the right posterior atrioventricular segment. The lesion stenosis prior to intervention was 90% with ANITA 2 flow. A 6 Fr JR 3.5 Guide Catheter was used to engage the ostium. STENT DEPLOYMENT A drug-eluting stent STENT RESOLUTE WILY 2.5 X 08 was inserted and inflated up to 12.00atm for 7seconds. Final angiography reveals 0 % stenosis with ANITA 3 flow. PCI Technique Lesion 3 Percutaneous Coronary Intervention was performed on the Distal right coronary artery. The lesion stenosis prior to intervention was 90% with ANITA 2 flow. A 6 Fr JR 3.5 Guide Catheter was used to engage the ostium. A Luge 182 Interventional Guidewire was used to cross the lesion. BALLOON DILATION A Balloon catheter 2.0 x 10 mm Sprinter OTW was inserted and inflated up to 14.00atm for 12seconds. Final angiography reveals 0 % stenosis with ANITA 3 flow. PCI Technique Lesion 4 Percutaneous Coronary Intervention was performed on the mistal right coronary artery. 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 LAD Mid 95% stenos and very tortous with hair pin turn after stenisis. Decresed LV Fx. Ef-25%, EDP-25 mmof Hg. Successful PTCA of RCA with deployment of Two KRISTINA, proximal to MID RCa and distal RCA, after pulling blood clot, Heavy clot burden noted in Mid RCA. Post procedure IABP was contemplated, but Abd aorogram revealed very tortous common iliac and distal aorta do IABP was not placed. Recommendations Cardiac Rehabilitation ReferralDaily ASA with Plavix for at least one year Aggressive Medical TherapyCardiac Risk Reduction Program Staged PTCA od LAD in 3-4 days. CC; Dr. Patria Strickland MD.
[2018-08-09] MEDS ORDERED: Amiodarone 150 mg/D5W 100 ml 150 MG/100 ML BAG IVPB ONE (10:31)
--- NOTE | 2018-08-09 12:02 | CP.PCM.PN ---
Subjective - Date & Time of Evaluation Date of Evaluation: 08/09/18 Time of Evaluation: 08:10 - Subjective Subjective: Pt seen and examined, no major complaints, doing well, s/p PCI yesterday Objective - Vital Signs/Intake and Output Vital Signs (last 24 hours): Temp Pulse Resp BP Pulse Ox 97.8 F 104 H 26 H 115/74 94 L 08/09/18 02:00 08/09/18 10:54 08/09/18 03:00 08/09/18 10:54 08/09/18 03:00 Intake and Output: 08/09/18 08/09/18 06:59 18:59 Intake Total 708 Output Total 300 Balance 408 - Medications Medications: Current Medications Acetaminophen (Tylenol 325mg Tab) 650 mg PO Q6H PRN PRN Reason: Fever >100.4 F Amiodarone HCl (Cordarone) 200 mg PO DAILY [facility] Aspirin (Ecotrin) 81 mg PO DAILY [facility] Last Admin: 08/09/18 09:36 Dose: 81 mg Atorvastatin Calcium (Lipitor) 80 mg PO DIN [facility] Last Admin: 08/08/18 18:00 Dose: Not Given Carvedilol (Coreg) 3.125 mg PO BID [facility] Last Admin: 08/09/18 09:36 Dose: 3.125 mg Clopidogrel Bisulfate (Plavix) 75 mg PO DAILY [facility] Last Admin: 08/09/18 09:36 Dose: 75 mg Docusate Sodium (Colace) 100 mg PO BID [facility] Last Admin: 08/09/18 09:40 Dose: 100 mg Ondansetron HCl (Zofran Inj) 4 mg IV Q6H PRN PRN Reason: Nausea/Vomiting Ramipril (Altace) 1.25 mg PO DAILY [facility] Last Admin: 08/09/18 10:07 Dose: 1.25 mg Zolpidem Tartrate (Ambien) 5 mg PO HS PRN PRN Reason: Insomnia - Labs Labs: 08/09/18 05:30 08/09/18 05:30 PT 15.4 SECONDS (9.4-12.5) H 08/08/18 15:00 INR 1.39 08/08/18 15:00 APTT 28.5 Seconds (26.9-38.3) 08/08/18 15:00 - Constitutional Appears: Non-toxic, No Acute Distress - Head Exam Head Exam: NORMAL INSPECTION - Eye Exam Eye Exam: Normal appearance - ENT Exam ENT Exam: Mucous Membranes Moist - Neck Exam Neck Exam: Full ROM - Respiratory Exam Respiratory Exam: Clear to Ausculation Bilateral, NORMAL BREATHING PATTERN - Cardiovascular Exam Cardiovascular Exam: REGULAR RHYTHM, +S1, +S2 - GI/Abdominal Exam GI & Abdominal Exam: Soft, Normal Bowel Sounds - Extremities Exam Extremities Exam: Normal Inspection - Neurological Exam Neurological Exam: Alert, Awake - Psychiatric Exam Psychiatric exam: Anxious - Skin Skin Exam: Normal Color, Warm Assessment and Plan - Assessment and Plan (Free Text) Assessment: Patient is 87yo female with PMH of HTN, depression, arthritis, no known hx of cardiac disease, brought in by family member after worsening malaise and weakness x3 days found to have an STEMI s/p cardiac cath with placement of 2 KRISTINA in RCA Currently afebrile, HD stable, comfortable in NAD, doing well Cardiology following, Dr Jade ECHO pending May need repeat PCI on MondayAugust 13 STEMI s/p PCI HTN Arthritis PLAN Cont with ASA, Plavix, Statin BB DC Inotropic support ECHO Lipid panel, TSH, HgbA1C GI ppx DVT ppx Stable, transfer to telemetry
--- NOTE | 2018-08-09 13:15 | PN ---
DATE: 08/09/2018 REASON FOR THE CONSULTATION AND FOLLOWUP: Acute CODE STEMI (acute inferior wall MD, status post primary angioplasty of RCA complex. SUBJECTIVE: The patient denies any chest pain, shortness of breath, any palpitation. Wanted to go home. OBJECTIVE: GENERAL: Not in apparent distress. Lying comfortable on the bed. VITAL SIGNS: Temperature afebrile. Heart rate 89 and blood pressure 116/76. HEENT: PERRLA. Extraocular muscles intact. NECK: Supple. No carotid bruits. No thyromegaly. CHEST: Clear to auscultation. HEART: S1 and S2, regular. ABDOMEN: Soft. EXTREMITIES: Clubbing and cyanosis negative. Right femoral artery looks okay. Right femoral area, no hematoma. No bruit noted. LABORATORY DATA: Blood workup; WBC 14.4, hemoglobin 11.2, hematocrit 33.8 and platelet count 171. Chemistry shows sodium 131, potassium 3.7, chloride 100, carbon dioxide 23, anion gap of 12, BUN 12 and creatinine 0.6. Total CPK 3199, troponin 53.6 trending down, maximum CPK 3867 now it is trending down and maximum troponin 62.3. EKG shows ST-elevation with reciprocal ST depression yesterday. Today's EKG is pending. IMPRESSION: An 87-year-old female with past medical history, hypothyroidism, hypertension, arthritis, admitted with acute inferior wall myocardial infarction presentation with weakness, lethargy, vomiting and nausea. diarrhea, but EKG consistent with acute inferior wall myocardial infarction with significant [address]-elevation inferior lead [address] depression anterior lead. The patient subsequently underwent angioplasty of right coronary artery with complex intervention and proximal to mid stent placed in right coronary artery and distal right coronary artery also stent placed, after clot being pulled from mid right coronary artery. The patient is very tortous common iliac both as well as aorta, so intraaortic balloon pump was not placed. Temporarily placed on dopamine and dobutamine, but the patient remain hemodynamically stable and it was discontinued. The patient briefly went into atrial fibrillation, but then converted to normal sinus. RECOMMENDATION: Continue aspirin. Continue Plavix. Continue ramipril 1.25 mg as blood pressure and heart rate is tolerated. Continue Coreg 3.125 mg daily. We will start amiodarone load with because of paroxysmal atrial fibrillation. We will go gentle 200 mg and because of the abnormal LFT's. We will continue Integrilin till 11:00 a.m. Supplement electrolytes. Repeat the blood workup in the morning. Repeat EKG echo to assess LV function and stage angioplasty of LAD on Monday. We discussed with the patient's niece, Danuta Reddy [phone], updated the patient's condition. Leonardo Jade MD
--- NOTE | 2018-08-09 13:37 | CP.PCM.APN ---
Subjective - Date & Time of Evaluation Date of Evaluation: 08/09/18 Time of Evaluation: 09:15 - Subjective Subjective: pt seenand examined a t bedside, per discussionwith Rn no overnight events, plan to wean off Integrilin , post cath Review of Systems - Review of Systems All systems: reviewed and no additional remarkable complaints except Objective - Vital Signs/Intake and Output Vital Signs (last 24 hours): Temp Pulse Resp BP Pulse Ox 97.8 F 104 H 26 H 115/74 94 L 08/09/18 02:00 08/09/18 10:54 08/09/18 03:00 08/09/18 10:54 08/09/18 03:00 Intake and Output: 08/09/18 08/09/18 06:59 18:59 Intake Total 708 Output Total 300 Balance 408 - Medications Medications: Current Medications Acetaminophen (Tylenol 325mg Tab) 650 mg PO Q6H PRN PRN Reason: Fever >100.4 F Amiodarone HCl (Cordarone) 200 mg PO DAILY [facility] Aspirin (Ecotrin) 81 mg PO DAILY [facility] Last Admin: 08/09/18 09:36 Dose: 81 mg Atorvastatin Calcium (Lipitor) 80 mg PO DIN [facility] Last Admin: 08/08/18 18:00 Dose: Not Given Carvedilol (Coreg) 3.125 mg PO BID [facility] Last Admin: 08/09/18 09:36 Dose: 3.125 mg Clopidogrel Bisulfate (Plavix) 75 mg PO DAILY [facility] Last Admin: 08/09/18 09:36 Dose: 75 mg Docusate Sodium (Colace) 100 mg PO BID [facility] Last Admin: 08/09/18 09:40 Dose: 100 mg Ondansetron HCl (Zofran Inj) 4 mg IV Q6H PRN PRN Reason: Nausea/Vomiting Last Admin: 08/09/18 12:20 Dose: 4 mg Ramipril (Altace) 1.25 mg PO DAILY [facility] Last Admin: 08/09/18 10:07 Dose: 1.25 mg Zolpidem Tartrate (Ambien) 5 mg PO HS PRN PRN Reason: Insomnia - Labs Labs: 08/09/18 05:30 08/09/18 05:30 PT 15.4 SECONDS (9.4-12.5) H 08/08/18 15:00 INR 1.39 08/08/18 15:00 APTT 28.5 Seconds (26.9-38.3) 08/08/18 15:00 - Constitutional Appears: Non-toxic - Head Exam Head Exam: ATRAUMATIC, NORMAL INSPECTION, NORMOCEPHALIC - Eye Exam Eye Exam: Normal appearance - Neck Exam Neck Exam: Full ROM - Respiratory Exam Respiratory Exam: Decreased Breath Sounds, NORMAL BREATHING PATTERN - Cardiovascular Exam Cardiovascular Exam: +S1, +S2 - Extremities Exam Additional comments: right groin stable post cath - Back Exam Back Exam: NORMAL INSPECTION - Neurological Exam Neurological Exam: Alert, Awake - Skin Skin Exam: Dry, Intact Assessment and Plan - Assessment and Plan (Free Text) Plan: ITS Impressions Chest X-Ray 08/08/18 15:01 IMPRESSION: No active disease. 08/10/18 07:00 ELECTROCARDIOGRAM Routine Comment: S/p PTCA of RCA< acute IWMI. A/P 87 yr old with pmh sig for htn, Hypothyroidism who presented to the ED with c/o n/v and generalized weakness.. pt was found to EKG changes consistent with STEMI /code heart and taken to the can labeler. pt is now s/p PCI to the RCa and being managed by CCU team, plan for Integrilin wean and additional staged PCI of LAD needed pt on NICOLASA.Ecotrin/Plavix/Statin regimen. will continue to follow clinical course BPCI/TIC - BPCIA/TIC Educated pt/family on BPCIA/CIR/Med to Bed Programs: Yes Flyers given, including [facility] Beneficiary letter: Yes Pt/family verbalized understanding & agreed to program: Yes (pt discuss with gertrude [employer])
--- NOTE | 2018-08-09 15:48 | PN ---
DATE: 08/09/2018 SUBJECTIVE: The patient is an 87-year-old, seen and examined. Doing well. No acute distress. PHYSICAL EXAMINATION: VITAL SIGNS: The patient is afebrile. Pulse 74, respiration 26 and blood pressure 115/74. LUNGS: Bilateral fair airflow. No rhonchi or crackle. HEART: S1 and S2, audible. ABDOMEN: Soft and nontender. No rebound. No guarding. NEUROLOGIC: The patient is awake, alert and able to communicate. EXTREMITIES: Bilateral leg, no edema. LABORATORY DATA: WBC 14.4, hemoglobin 11.2, hematocrit 33.8 and platelet 171. Chemistry; sodium 131, potassium 3.7, chloride 100, CO2 of 23, BUN 22, creatinine 0.6, blood sugar 106, AST 196, ALT 82, LDH is 3199 and CPK is 924. ASSESSMENT: 1. Status post code heart, status post emergent angioplasty, status post right coronary artery angioplasty. 2. History of hypertension. 3. History of generalized osteoarthritis. PLAN: Currently, the patient is on ramipril 1.25 daily. She is on Ambien. She is on amiodarone 200 mg daily. She is on carvedilol and aspirin. Potassium is being supplemented. She is on Plavix and out of bed to chair. We will followup in a.m. Corry Kirby MD
--- NOTE | 2018-08-09 16:48 | CARD ---
APPROVED REPORT Date of service: 08/09/2018 EKG Measurement Heart [id number] 302P [id number] <Conclusion> Sinus tachycardia with 1st degree AV block Inferior infarct, possibly acute T wave abnormalities ACUTE NH Consider right ventricular and posterior wall involvement in acute inferior infarct CCR Abnormal ECG
--- NOTE | 2018-08-09 17:05 | CARD ---
APPROVED REPORT Date of service: 08/09/2018 EXAM: Two-dimensional and M-mode echocardiogram with Doppler and color Doppler. INDICATION STEMI 2D DIMENSIONS Left Atrium (2D)3.6 (1.6-4.0cm)IVSd0.9 (0.7-1.1cm) LVDd4.5 (3.9-5.9cm)PWd1.1 (0.7-1.1cm) LVDs4.0 (2.5-4.0cm)FS (%) 12.5 % LVEF (%)25.0 (>50%) M-Mode DIMENSIONS Aortic Root1.90 (2.2-3.7cm)Aortic Cusp Exc.0.70 (1.5-2.0cm) Aortic Valve AoV Peak Surotifk842.0cm/Luisito Peak GR.9mmHg Mitral Valve MV E Ldcjygrw27.0cm/sMV A Gpairnij63.4cm/sE/A ratio1.9 TDI E/Lateral E'0.0E/Medial E'0.0 Tricuspid Valve TR Peak Ytymnxls910pq/sRAP IFAOMBGC00vpEuDE Peak Gr.20mmHg LZSQ25pcMc LEFT VENTRICLE The left ventricle is normal size. There is normal left ventricular wall thickness. The systolic function is moderately to severely impaired.EF-25-30% Regional wall motion abnormalities noted, C/w CAD There is mild to moderate hypokinesis in the apical anterior wall. There is moderate to severe hypokinesis in the mid-inferolateral wall. Transmitral Doppler flow pattern is Grade II-pseudonormal filling dynamics. No left ventricle thrombus noted on this study. There is no ventricular septal defect visualized. There is no left ventricular aneurysm. There is no mass noted in the left ventricle. RIGHT VENTRICLE The right ventricle is normal size. There is normal right ventricular wall thickness. Systolic function is mildly reduced. ATRIA The left atrium is mildly dilated. The right atrium is mildly dilated. The interatrial septum is intact with no evidence for an atrial septal defect. AORTIC VALVE The aortic valve is calcified but opens well. There is trace to mild aortic regurgitation. There is no aortic valvular stenosis. There is no aortic valvular vegetation. MITRAL VALVE The mitral valve is thickened but opens well. Mitral regurgitation is moderate. There is no mitral valve stenosis. There is no evidence of mitral valve prolapse. TRICUSPID VALVE The tricuspid valve leaflets are thickened , but open well. There is mild to moderate tricuspid regurgitation.RVSP-30 mmof Hg. There is no tricuspid valve stenosis. There is no tricuspid valve prolapse or vegetation. PULMONIC VALVE The pulmonary valve is normal in structure. There is trace pulmonic valvular regurgitation. There is no pulmonic valvular stenosis. GREAT VESSELS The aortic root is normal in size. The ascending aorta is normal in size. The pulmonary artery is normal. The IVC is normal in size and collapses >50% with inspiration. PERICARDIAL EFFUSION There is no pleural effusion. There is no pericardial effusion. <Conclusion> Regional wall motion abnormalities noted, C/w CAD There is mild to moderate hypokinesis in the apical anterior wall. The left ventricle is normal size. There is normal left ventricular wall thickness. The systolic function is moderately to severely impaired.EF-25-30% Mitral regurgitation is moderate. There is mild to moderate tricuspid regurgitation.RVSP-30 mmof Hg. The IVC is normal in size and collapses >50% with inspiration. There is no pericardial effusion. S/p IWMI, Code STEMI, S/p PTCA RCA.
[2018-08-10 05:56] LABS: EOS # 0.1 (0.0-0.7); EOS % 0.8 % (1.5-5.0); HEMOGLOBIN 10.8 g/dL (12.0-16.0); LYMPH # 1.9 (1.2-3.4); LYMPH % 14.8 % (22.0-35.0); MEAN CELL VOLUME 89.3 fl (80.0-105.0); MEAN CORPUSCULAR HEMOGLOBIN 29.7 pg (25.0-35.0); MEAN CORPUSCULAR HGB CONC 33.2 g/dl (31.0-37.0); MONO # 1.1 (0.1-0.6); MONO % 8.8 % (1.0-6.0); RBC 3.64 10^6/uL (3.5-6.1); RED CELL DISTRIBUTION WIDTH 14.1 % (11.5-14.5); WHITE BLOOD COUNT 12.8 10^3/uL (4.5-11.0)
[2018-08-10 06:24] LABS: ALB/GLOB RATIO 1.1 (1.1-1.8); ALBUMIN 3.3 g/dL (3.0-4.8); ALT/SGPT 65 U/L (7-56); AST/SGOT 91 U/L (14-36); BLOOD UREA NITROGEN 24 mg/dL (7-21); CALCIUM 8.7 mg/dL (8.4-10.5); GFR NON-AFRICAN AMERICAN > 60
[2018-08-10] MEDS: Milrinone 20mg/100ml D5W 100 ML IV PRN (07:55)
[2018-08-10 08:54] LABS: CK-MB 10.9 ng/mL (0.0-3.6); TROPONIN I 28.2 ng/mL
--- NOTE | 2018-08-10 09:53 | RAD ---
Date of service: 08/10/2018 HISTORY: CHF COMPARISON: No prior. TECHNIQUE: 1 view obtained. FINDINGS: LUNGS: No active pulmonary disease. PLEURA: No significant pleural effusion identified, no pneumothorax apparent. CARDIOVASCULAR: Aortic calcifications Mild cardiomegaly no pulmonary vascular congestion. OSSEOUS STRUCTURES: No significant abnormalities. VISUALIZED UPPER ABDOMEN: Normal. OTHER FINDINGS: None. IMPRESSION: No active disease.
--- NOTE | 2018-08-10 11:54 | CARD ---
APPROVED REPORT Date of service: 08/09/2018 EKG Measurement Heart [id number] <Conclusion> Normal sinus rhythm Inferior infarct, possibly acute T wave abnormality, consider lateral ischemia ACUTE ME Consider right ventricular involvement in acute inferior infarct Abnormal ECG
--- NOTE | 2018-08-10 13:08 | PN ---
DATE: 08/10/2018 REASON FOR CONSULTATION AND FOLLOWUP: Acute code STEMI (acute inferior wall AR), status post primary angioplasty for RCA, complex. SUBJECTIVE: The patient denies any chest pain or shortness of breath or any palpitations. Nurse reports that the patient with little bit oxygen saturation, was dropping, but on Ventimask saturation improved. PHYSICAL EXAMINATION: GENERAL: Not in apparent distress, lying flat in the bed, still in ICU. VITAL SIGNS: Temperature afebrile. Heart rate 90, blood pressure 108/67. HEENT: PERRLA intact. Extraocular muscles are intact. NECK: Supple. No carotid bruits or thyromegaly. CHEST: Clear to auscultation. HEART: S1 and S2 regular. ABDOMEN: Soft. EXTREMITIES: Clubbing and cyanosis negative. LABORATORY DATA: EKG shows sinus tachycardia first-degree AV block, inferior wall AR, acute persistent ST elevation inferior lead and reciprocal ST depression. Today's EKG is pending. Blood workup: WBC 12.8, hemoglobin 10.8, hematocrit 32.5, platelet count 192. Chemistry shows sodium 135, potassium 4.4, chloride 103, bicarbonate 26, anion gap of 10, BUN 24, creatinine 0.6. The patient had an echocardiography done yesterday that revealed regional wall motion probably consistent with coronary artery disease, ejection fraction 25 to 30%. Moderate mitral regurgitation, mild to moderate tricuspid regurgitation, RV systolic pressure of 30. IMPRESSION AND PLAN: An 87-year-old female with past medical history significant for hypothyroidism, on Synthroid; history of arthritis, admitted with acute inferior wall myocardial infarction, presentation was generalized weakness with lethargy, nausea, vomiting, one episode of diarrhea, but EKG consistent with acute inferior wall myocardial infarction, ST segment elevation in lead II, III, and aVF and reciprocal ST depression anteriorly. The patient subsequently underwent primary angioplasty of right coronary artery after suctioning the blood clot as well as stent in the proximal to mid right coronary artery as well as distal right coronary artery and other small stent was deployed, angioplasty, right ventricular marginal branch. The patient has critical disease in left anterior descending, is scheduled for percutaneous transluminal coronary angioplasty on Monday. Yesterday, ejection fraction 25 to 30%. The patient has mild failure and moderate mitral and moderate tricuspid regurgitation. RECOMMENDATIONS: Follow up serial CPK, troponin. Continue supplement electrolytes as needed. Amiodarone given and then 200 mg started for paroxysmal atrial fibrillation. The patient went into AFib, converted to normal sinus. Continue baby aspirin. Continue Plavix. We will start low dose of Primacor for congestive heart failure. This feature is secondary to systolic dysfunction post AR. Continue amiodarone. Continue Plavix. Give one dose of Lasix IV and then start 40 Lasix p.o. Continue Altace as blood pressure is tolerated. Continue low dose of Coreg. Repeat troponin. We will get EKG. Thank you for Dr. Kirby for providing us the opportunity in taking care of the patient, Rossi. Discussed with the niece yesterday for the patient's condition. Leonardo Jade MD
--- NOTE | 2018-08-10 13:57 | PN ---
DATE: 08/10/2018 SUBJECTIVE: The patient is a 87-year-old, seen and examined with somewhat confused yesterday, seems to be much clear, and knows where she is. Complained of headache, asking for Tylenol, otherwise no chest pain, no shortness of breath, or no dizziness. PHYSICAL EXAMINATION: VITAL SIGNS: The patient is afebrile, pulse 109, respirations 18, and blood pressure 125/83. LUNGS: Bilateral fair airflow. No rhonchi or crackle. HEART: S1 and S2 audible. ABDOMEN: Soft and nontender. No rebound. No guarding. NEUROLOGIC: The patient is awake and alert; able to communicate. LABORATORY DATA: WBC 12.8, hemoglobin 10.8, hematocrit 32.5, and platelet 192. Chemistry; sodium 135, potassium 4.4, chloride 103, CO2 26, BUN 34, creatinine 0.6, and blood sugar of 108. X-ray of chest was done, that shows no active diseases. ASSESSMENT: 1. ST-elevation myocardial infarction status post code heart, had right coronary artery angioplasty done, need stage angioplasty of left anterior descending. 2. Hypertension. 3. Hyperlipidemia. 4. Generalized osteoarthritis. PLAN: The patient is currently on beta garry statins, Plavix, aspirin, and amiodarone. We will continue her diet. She can be transferred to telemetry for further monitoring and rehab, probably she is a candidate of TCU. Corry Kirby MD
[2018-08-10 14:16] VITALS: O2SAT 96
[2018-08-10 17:16] VITALS: RESP 18
--- NOTE | 2018-08-10 19:53 | CARD ---
APPROVED REPORT Date of service: 08/10/2018 EKG Measurement Heart [id number] [place] 320P [id number] <Conclusion> Sinus tachycardia with 1st degree AV block Inferior infarct, possibly acute T wave abnormality, consider lateral ischemia Consider right ventricular involvement Little change since previous study Abnormal ECG
[2018-08-11 06:46] VITALS: TEMP 98.4
[2018-08-11 06:57] LABS: ALB/GLOB RATIO 1.1 (1.1-1.8); ALBUMIN 3.1 g/dL (3.0-4.8); ALT/SGPT 59 U/L (7-56); AST/SGOT 54 U/L (14-36); BLOOD UREA NITROGEN 24 mg/dL (7-21); CALCIUM 8.2 mg/dL (8.4-10.5); GFR NON-AFRICAN AMERICAN > 60
[2018-08-11 07:02] LABS: BASO # 0.01 K/mm3 (0.0-2.0); BASO % 0.1 % (0.0-3.0); EOS # 0.4 (0.0-0.7); EOS % 3.9 % (1.5-5.0); HEMOGLOBIN 10.1 g/dL (12.0-16.0); LYMPH # 1.9 (1.2-3.4); LYMPH % 16.9 % (22.0-35.0); MEAN CELL VOLUME 89.4 fl (80.0-105.0); MEAN CORPUSCULAR HEMOGLOBIN 29.6 pg (25.0-35.0); MEAN CORPUSCULAR HGB CONC 33.1 g/dl (31.0-37.0); MEAN PLATELET VOLUME 9.8 fl (7.0-11.0); MONO # 1.3 (0.1-0.6); MONO % 12.2 % (1.0-6.0); RBC 3.41 10^6/uL (3.5-6.1); RED CELL DISTRIBUTION WIDTH 13.9 % (11.5-14.5); WHITE BLOOD COUNT 10.9 10^3/uL (4.5-11.0)
[2018-08-11] MEDS: Milrinone 20mg/100ml D5W 100 ML IV PRN (07:26)
[2018-08-11 10:42] VITALS: BP 99/69
--- NOTE | 2018-08-11 11:33 | CP.PCM.PN ---
Subjective - Date & Time of Evaluation Date of Evaluation: 08/11/18 Time of Evaluation: 10:11 - Subjective Subjective: Jacky Mace Progress Note: Jacky Mace was called at 10:11 am as the patient was hypotensive with a heart rate of 30s. PMD of the patient, Dr Espinosa and Residential Team Leader Dr Hunt were on the floor and aware. CPR started immediately as per ACLS protocol, 3 doses of Epinephrine, 1 dose of dopamine and one dose of atropine were given during the code. Please refer to the code sheet for further details. Patient remained severely bradycaria, and subsequently carotid/femoral pulses were non palpable. Blood glucose was 288. Patient was intubated to protect airway. Code was ran for approximately >30 minutes without good effect and subsequently patient was pronounced . Jacky Mace stopped and patient , PMD and family made aware and all questions were answered. Objective - Vital Signs/Intake and Output Vital Signs (last 24 hours): Temp Pulse Resp BP Pulse Ox 98.4 F 90 18 99/69 L 96 08/11/18 04:00 08/11/18 04:00 08/11/18 04:00 08/11/18 04:00 08/10/18 14:00 Intake and Output: 08/11/18 08/11/18 06:59 18:59 Intake Total 100 Balance 100 - Medications Medications: Current Medications Acetaminophen (Tylenol 325mg Tab) 650 mg PO Q6H PRN PRN Reason: Fever >100.4 F Last Admin: 08/10/18 12:13 Dose: 650 mg Aspirin (Ecotrin) 81 mg PO DAILY [facility] Last Admin: 08/10/18 09:04 Dose: 81 mg Atorvastatin Calcium (Lipitor) 80 mg PO DIN [facility] Last Admin: 08/10/18 18:24 Dose: 80 mg Clopidogrel Bisulfate (Plavix) 75 mg PO DAILY [facility] Last Admin: 08/10/18 09:03 Dose: 75 mg Docusate Sodium (Colace) 100 mg PO BID [facility] Last Admin: 08/11/18 09:40 Dose: Not Given Furosemide (Lasix) 40 mg PO DAILY [facility] Last Admin: 08/11/18 09:40 Dose: Not Given Ondansetron HCl (Zofran Inj) 4 mg IV Q6H PRN PRN Reason: Nausea/Vomiting Last Admin: 08/09/18 12:20 Dose: 4 mg Ramipril (Altace) 1.25 mg PO DAILY [facility] Last Admin: 08/11/18 09:40 Dose: Not Given Trazodone HCl (Desyrel) 50 mg PO HS [facility] Last Admin: 08/10/18 21:29 Dose: 50 mg Zolpidem Tartrate (Ambien) 5 mg PO HS PRN PRN Reason: Insomnia Last Admin: 08/11/18 01:42 Dose: 5 mg - Labs Labs: 08/11/18 06:00 08/11/18 06:00 PT 15.4 SECONDS (9.4-12.5) H 08/08/18 15:00 INR 1.39 08/08/18 15:00 APTT 28.5 Seconds (26.9-38.3) 08/08/18 15:00
--- NOTE | 2018-08-11 11:41 | CP.PCM.PRO ---
Pronouncement of Note - Clinical Findings Physical Exam: No Response Verbal/Painful Stimuli, Absent Peripheral Puls es{Carotid & Femoral}, Absent Heart & Breath Sounds, No Pupillary Light Reflex, No Corneal Reflex, Pupils Fixed & Dilated, Absence of Vital Signs - Pronouncement Time Time of Pronouncement of : 10:49 - Notifications Pronouncement Notifications: Family Notified, Atending Notified Customer Advisor Notified: No - Autopsy Autopsy Requested: No - [place] [id number]
[2018-08-11 11:48] VITALS: PULSE 87
--- NOTE | 2018-08-11 12:18 | PCM.PROC ---
Addendum Addendum: 08/11/18 12:16 Arrived to [facility] Hospitalist team and Dr Hunt running the code I performed the Endotracheal Intubation The patient was placed in a flat position. The patient was easily ventilated using an ambu bag. The MAC 3 BLADE was used and inserted into the oropharynx at which time there was a Grade 1 view of the vocal cords. A 7.0-frisian endotracheal tube was inserted and visualized going through the vocal cords. The stylette was removed. Colorimetric change was visualized on the CO2 meter. Breath sounds were heard in both lung lopez equally. The endotracheal tube was placed at 23 cm, measured at the teeth. Estimated Blood Loss: minimal Mita Lainez MD
--- NOTE | 2018-08-11 13:18 | PN ---
DATE: 08/11/[address] Jade. SUBJECTIVE: The patient is resting comfortably in bed. No shortness of breath. PHYSICAL EXAMINATION: VITAL SIGNS: Blood pressure is 100/70, heart rate is in the 90s. NECK: Negative JVD. LUNGS: Decreased breath sounds bilaterally. HEART: Reveals S1, S2. EXTREMITIES: Without change. LABORATORY DATA: BUN and creatinine is unremarkable. The hemoglobin is 10.1. IMPRESSION: 1. Status post acute inferior wall myocardial infarction. 2. Status post emergency percutaneous transluminal coronary angioplasty and stent of an occluded right coronary artery. 3. Multivessel coronary artery disease. 4. Ischemic dilated cardiomyopathy. 5. Paroxysmal atrial fibrillation which the patient is in normal sinus rhythm now. Given these findings, the patient is mildly tachycardic we will discontinue the Primacor today. We will continue the aspirin and Plavix as well as the amiodarone. Abdullahi Hunt MD
--- NOTE | 2018-08-11 13:49 | PN ---
DATE: 08/11/2018 SUBJECTIVE: The patient was found to be markedly bradycardic. On evaluation of the patient, her blood pressure was less than 50. The code was called. CPR was performed. After extensive measures, the patient was unable to generate adequate heart rhythm nor blood pressure. Despite CPR and maneuvers as well as medications, the patient . I called the closest relative who is her niece and she is aware. Abdullahi Hunt MD
--- NOTE | 2018-08-11 19:05 | CARD ---
APPROVED REPORT Date of service: 08/11/2018 EKG Measurement Heart [id number] <Conclusion> Sinus tachycardia with premature supraventricular complexes Low voltage QRS Inferior infarct, possibly acute Marked ST abnormality, possible septal subendocardial injury Compaed to previous tracing improved STT abnormalities suggest evolving [place] Abnormal ECG
--- NOTE | 2018-08-11 21:42 | DS ---
HISTORY OF PRESENT ILLNESS: The patient is an 87-year-old, who was admitted because of not feeling well. She was brought in by her family members. She was found to be have acute ST-elevation UT. Code heart was called. The patient was taken to the clinical laboratory assistant. She was found to have critical stenosis of RCA and drug-eluted stent by Dr. Jade. The patient remained in ICU. Plan was to do stage angioplasty for LAD also. I walked in the patient, she was found to be unresponsive and pale bradycardic, so tee blue was called, resuscitation was started. Multiple rounds of initially atropine and then epinephrine was given, but not able to resuscitate the patient and she . ASSESSMENT: 1. Status post acute myocardial infarction of inferior wall, status post right coronary artery angioplasty. 2. Hypertension. 3. History of hyperlipidemia. 4. Generalized osteoarthritis. So, the patient . Dr. Hunt called and spoke to the family. Corry Kirby MD
== END 2018-08-11 14:22 | DRG 247 ==
LOC: ED 14:43 → ERH 15:12 → CCU 17:35 → 2RNO 08-10 15:08
PROVIDERS: ADMIT Internal Medicine; ATTEND Internal Medicine
PROC: 3E033PZ Introduction of Platelet Inhibitor into Peripheral Vein, Percutaneous Approach (ICD-10-PCS; 2018-08-08)
PROC: 027035Z Dilation of Coronary Artery, One Artery with Two Drug-eluting Intraluminal Devices, Percutaneous Approach (ICD-10-PCS; principal; 2018-08-09)
PROC: 02703ZZ Dilation of Coronary Artery, One Artery, Percutaneous Approach (ICD-10-PCS; 2018-08-09)
PROC: 4A023N7 Measurement of Cardiac Sampling and Pressure, Left Heart, Percutaneous Approach (ICD-10-PCS; 2018-08-09)
PROC: B2151ZZ Fluoroscopy of Left Heart using Low Osmolar Contrast (ICD-10-PCS; 2018-08-09)
PROC: B2111ZZ Fluoroscopy of Multiple Coronary Arteries using Low Osmolar Contrast (ICD-10-PCS; 2018-08-09)
PROC: 5A12012 Performance of Cardiac Output, Single, Manual (ICD-10-PCS; 2018-08-11)
PROC: 0BH17EZ Insertion of Endotracheal Airway into Trachea, Via Natural or Artificial Opening (ICD-10-PCS; 2018-08-11)
DX: I21.11 ST elevation (STEMI) myocardial infarction involving right coronary artery (principal); I42.0 Dilated cardiomyopathy; Z79.899 Other long term (current) drug therapy; Z79.1 Long term (current) use of non-steroidal anti-inflammatories (NSAID); I10 Essential (primary) hypertension; M54.2 Cervicalgia; E78.5 Hyperlipidemia, unspecified; E03.9 Hypothyroidism, unspecified; I08.1 Rheumatic disorders of both mitral and tricuspid valves; I25.10 Atherosclerotic heart disease of native coronary artery without angina pectoris; I25.5 Ischemic cardiomyopathy; I48.0 Paroxysmal atrial fibrillation; M15.9 Polyosteoarthritis, unspecified; Z79.02 Long term (current) use of antithrombotics/antiplatelets; Z79.82 Long term (current) use of aspirin; Z82.49 Family history of ischemic heart disease and other diseases of the circulatory system; Z83.3 Family history of diabetes mellitus; Z95.5 Presence of coronary angioplasty implant and graft